=== PATIENT | male | born 1990 | race Two or more races ===

== ENCOUNTER 2024-03-30 22:22 | Inpatient (IN) | payer OTHER ==
[~2024-03-30] VITALS: Ht 177.8 cm; Wt 77.1 kg
[2024-03-30] MEDS ORDERED: LACO100T2 GT (22:58)
[2024-03-30] MEDS ORDERED: LEVE100S GT (22:58)
[2024-03-30] MEDS ORDERED: FAMO20TA8 GT (22:58)
[2024-03-30] MEDS ORDERED: HYDR-4077 GT (22:58)
[2024-03-30] MEDS ORDERED: AMLO-212 GT (22:58)
[2024-03-30] MEDS ORDERED: METO50TA16 GT (22:58)
[2024-03-30] MEDS ORDERED: AMIN30LI2 GT (22:58)
[2024-03-30] MEDS ORDERED: HEPA500034 SUBCUT (22:58)
[2024-03-30] MEDS ORDERED: LOSA25TA27 GT (22:58)
[2024-03-30 23:04] LABS: BASOPHILS # (AUTO) 0.1 K/UL (0.0-0.2); BASOPHILS % (AUTO) 0.5 % (0.0-2.0); EOSINOPHILS # (AUTO) 0.4 K/uL (0.0-0.7); EOSINOPHILS % (AUTO) 1.9 % (0.0-7.0); HEMATOCRIT 41.7 % (36.7-47.1); HEMOGLOBIN 13.2 g/dL (12.5-16.3); LYMPHOCYTES % (AUTO) 13.8 % (20.5-51.5); MEAN CORPUSCULAR HEMOGLOBIN 30.4 uug (23.8-33.4); MEAN CORPUSCULAR HGB CONC 32 g/dL (32.5-36.3); MEAN CORPUSCULAR VOLUME 96.1 fL (73.0-96.2); MONOCYTES # (AUTO) 0.7 K/uL (0.1-1.30); MONOCYTES % (AUTO) 3.2 % (0.0-11.0); NEUTROPHILS # (AUTO) 17.8 K/uL (1.8-8.9); NEUTROPHILS % (AUTO) 80.6 % (38.5-71.5); PLATELET COUNT (AUTO) 555 K/uL (152-348); RED BLOOD CELL COUNT(AUTO) 4.33 MIL/uL (4.06-5.63)
[2024-03-30 23:08] LABS: CALCIUM 9.4 mg/dL (8.5-10.1); CARBON DIOXIDE 26 mmol/L (21-32); CHLORIDE 120 mmol/L (98-107); CREATININE 1.1 mg/dL (0.6-1.3); GLUCOSE 132 mg/dL (74-106); POTASSIUM 4.8 mmol/L (3.5-5.1); UREA NITROGEN, BLOOD 52 mg/dL (7-18)
[2024-03-30 23:25] LABS: ALANINE AMINOTRANSFERASE 255 U/L (16-63); ALBUMIN 3.6 g/dL (3.4-5.0); ALKALINE PHOSPHATASE 379 U/L (50-136); ASPARTATE AMINOTRANSFERASE 50 U/L (15-37); BILIRUBIN,DIRECT 0.2 mg/dL (0.0-0.2); BILIRUBIN,TOTAL 0.5 mg/dL (0.2-1.0); NT-PRO BNP 45 pg/mL (0-125); TOTAL PROTEIN, SERUM 8.7 g/dL (6.4-8.2)
[2024-03-30] MEDS ORDERED: ACETAMINOPHEN 325 MG SUPP ONE (23:26)
[2024-03-30] MEDS ORDERED: MEROPENEM 1GM/NS 100ML IVPB **ER PYXIS ONLY IV ONE (23:30)
[2024-03-30] MEDS: MEROPENEM 1 G in IV NORMAL SALINE 100 ML IV ONE (23:37)
[2024-03-30] MEDS: IV NORMAL SALINE 1000 ML BAG IV ONE (23:37)
[2024-03-31 00:02] LABS: ABG HCO3 24.5 mmol/L (22.0-26.0); ABG PCO2 35.1 mmHg (35.0-48.0); ABG PH 7.461 (7.340-7.440); ABG PO2 147.2 mmHg (75.0-100.0); ABG SITE ALINE; ABG TOTAL HEMOGLOBIN 12.8 G/dL (14.0-18.0); COHb 0.3 % (0.0-3.9); MetHb 0.4 % (0.0-1.5); VT, ABG 500 mL
[2024-03-31] MEDS: IV D5W 1000ML 1,000 ML IV ONE (00:04)
[2024-03-31] MEDS ORDERED: REMEDY ESSENTIAL ZINC PASTE 113 GM TP PRN (02:45)
[2024-03-31] MEDS ORDERED: IV NS 1000 ML 1,000 ML IV PRN (02:45)
[2024-03-31] MEDS ORDERED: MAGNESIUM HYDROXIDE 30 ML LIQUID UDC PO PRN (02:45)
[2024-03-31] MEDS ORDERED: ONDANSETRON 4 MG/2 ML VIAL IV PRN (02:45)
[2024-03-31] MEDS: IV D5W 1000ML 1,000 ML IV SCH (05:10)
[2024-03-31] MEDS: ACETAMINOPHEN 325 MG TABLET PO PRN (05:18)
[2024-03-31 05:59] VITALS: BP 134/77; TEMP 100; O2SAT 98
[2024-03-31] MEDS ORDERED: MEROPENEM 1 G in IV NORMAL SALINE 100 ML IV SCH (06:00)
[2024-03-31 06:46] LABS: BASOPHILS # (AUTO) 0.1 K/UL (0.0-0.2); BASOPHILS % (AUTO) 0.4 % (0.0-2.0); EOSINOPHILS # (AUTO) 0.3 K/uL (0.0-0.7); EOSINOPHILS % (AUTO) 1.4 % (0.0-7.0); HEMOGLOBIN 11.8 g/dL (12.5-16.3); LYMPHOCYTES # (AUTO) 1.9 K/uL (0.8-4.8); LYMPHOCYTES % (AUTO) 8.7 % (20.5-51.5); MEAN CORPUSCULAR HEMOGLOBIN 31.6 uug (23.8-33.4); MEAN CORPUSCULAR HGB CONC 33 g/dL (32.5-36.3); MEAN CORPUSCULAR VOLUME 96.2 fL (73.0-96.2); MONOCYTES # (AUTO) 0.9 K/uL (0.1-1.30); MONOCYTES % (AUTO) 3.9 % (0.0-11.0); NEUTROPHILS # (AUTO) 18.9 K/uL (1.8-8.9); NEUTROPHILS % (AUTO) 85.6 % (38.5-71.5); PLATELET COUNT (AUTO) 441 K/uL (152-348); RED BLOOD CELL COUNT(AUTO) 3.75 MIL/uL (4.06-5.63); RED CELL DISTRIBUTION WIDTH 14.7 % (12.1-16.2); WHITE BLOOD COUNT (AUTO) 22.1 K/uL (3.6-10.2)
[2024-03-31 06:53] LABS: ALBUMIN 3.2 g/dL (3.4-5.0); BILIRUBIN,DIRECT 0.2 mg/dL (0.0-0.2); BILIRUBIN,TOTAL 0.6 mg/dL (0.2-1.0); CALCIUM 8.9 mg/dL (8.5-10.1); MAGNESIUM 2.9 mg/dL (1.8-2.4); PHOSPHOROUS 5.8 mg/dL (2.5-4.9); TOTAL PROTEIN, SERUM 7.9 g/dL (6.4-8.2)
[2024-03-31 07:07] LABS: THYROID STIMULATING HORMONE 3.357 mIU/mL (0.358-3.740)
[2024-03-31 07:12] LABS: DIFFERENTIAL COMMENT 1
[2024-03-31 08:00] VITALS: BP 130/96; TEMP 98.9; O2SAT 98
[2024-03-31] MEDS: IV NS 1000 ML 1,000 ML IV ONE (08:38)
[2024-03-31] MEDS: MEROPENEM 1 G in IV NORMAL SALINE 100 ML IV SCH (08:44)
[2024-03-31] MEDS: PANTOPRAZOLE SODIUM 40 MG VIAL IV SCH (08:45)
[2024-03-31] MEDS: ENOXAPARIN SODIUM 40 MG/0.4 ML DISP.SYRIN SQ SCH (08:49)
[2024-03-31 10:38] LABS: *BILIRUBIN,URIN NEGATIVE (NEGATIVE); *CLARITY,URINE CLOUDY (CLEAR); *COLOR,URINE YELLOW (YELLOW); *KETONES,URINE NEGATIVE (NEGATIVE); *PROTEIN,URINE 3+ (NEGATIVE); *UROBILINOGEN,URINE 0.2 E.U./dl (NORMAL); LEUKOCYTE ESTERASE ,URINE 3+ (NEGATIVE); NITRITE, URINE NEGATIVE (NEGATIVE); PH,URINE >=9.0 (5.0-8.0); UGLUCOSE NEGATIVE (NEGATIVE)
[2024-03-31] MEDS ORDERED: LORAZEPAM 2 MG/1 ML VIAL IV PRN (11:30)
[2024-03-31 12:43] LABS: *BLOOD, URINE TRACE (NEGATIVE)
[2024-03-31] MEDS ORDERED: JEVITY 1.2 1000 ML LIQUID GT PRN (13:15)
[2024-03-31 13:26] LABS: WBC,URINE 80-100 /HPF (0-3)
[2024-03-31 13:28] LABS: BACTERIA,URINE MODERATE /HPF (NONE SEEN); SQUAMOUS EPITHELIAL CELL,UR FEW /HPF (NONE SEEN)
[2024-03-31] MEDS: METOPROLOL TARTRATE 50 MG TABLET GT SCH (13:36)
[2024-03-31] MEDS: LACOSAMIDE 50 MG TABLET GT SCH (16:40)
[2024-03-31] MEDS: PROTEIN SUPPLEMENT (PROSTAT) 30 ML LIQUID GT SCH (16:40)
[2024-03-31] MEDS: levETIRAcetam 500 MG/5 ML LIQUID UDC GT SCH (16:40)
[2024-03-31] MEDS ORDERED: Medication Not On Formulary EA (Lacosamide (Vimpat) 100 MG) GT SCH (17:00)
[2024-03-31] MEDS ORDERED: Medication Not On Formulary EA (Amino Acids/Protein Hydrolys (Pro-Stat Liquid) 30 ML) GT SCH (17:00)
[2024-03-31 17:14] VITALS: BP 107/72; TEMP 98.2; O2SAT 93
[2024-03-31] MEDS: JEVITY 1.2 1000 ML LIQUID GT PRN (17:33)
[2024-03-31 19:45] VITALS: BP 109/66; TEMP 97.5; O2SAT 99
[2024-04-01] VITALS (7 sets, daily range): BP systolic 89–125; BP diastolic 50–69; TEMP 97.6–100.3; O2SAT 97–99
[2024-04-01 06:37] LABS: ABG BASE EXCESS -2.7 mmol/L (-2.0-2.0); ABG HCO3 20.8 mmol/L (22.0-26.0); ABG PCO2 31.7 mmHg (35.0-48.0); ABG PH 7.435 (7.340-7.440); ABG PO2 138.3 mmHg (75.0-100.0); ABG SITE RIGHT RADIAL; ABG TOTAL HEMOGLOBIN 10.4 G/dL (14.0-18.0); AaDO2 98.9 mmHg; COHb 0.2 % (0.0-3.9); MetHb 0.5 % (0.0-1.5); O2Hb 97.7 % (94.0-97.0); VT, ABG 500 mL
[2024-04-01 07:39] LABS: BASOPHILS # (AUTO) 0.1 K/UL (0.0-0.2); BASOPHILS % (AUTO) 0.7 % (0.0-2.0); EOSINOPHILS # (AUTO) 0.6 K/uL (0.0-0.7); EOSINOPHILS % (AUTO) 3.8 % (0.0-7.0); HEMATOCRIT 29.9 % (36.7-47.1); HEMOGLOBIN 9.8 g/dL (12.5-16.3); LYMPHOCYTES % (AUTO) 13.6 % (20.5-51.5); MEAN CORPUSCULAR HEMOGLOBIN 31.5 uug (23.8-33.4); MEAN CORPUSCULAR HGB CONC 33 g/dL (32.5-36.3); MEAN CORPUSCULAR VOLUME 96.2 fL (73.0-96.2); MONOCYTES # (AUTO) 0.7 K/uL (0.1-1.30); MONOCYTES % (AUTO) 4.9 % (0.0-11.0); NEUTROPHILS # (AUTO) 11.2 K/uL (1.8-8.9); PLATELET COUNT (AUTO) 413 K/uL (152-348); RED BLOOD CELL COUNT(AUTO) 3.11 MIL/uL (4.06-5.63); RED CELL DISTRIBUTION WIDTH 14.9 % (12.1-16.2); WHITE BLOOD COUNT (AUTO) 14.6 K/uL (3.6-10.2)
[2024-04-01 07:44] LABS: DIFFERENTIAL COMMENT 1
[2024-04-01 08:00] LABS: ALBUMIN 2.7 g/dL (3.4-5.0); BILIRUBIN,DIRECT 0.1 mg/dL (0.0-0.2); BILIRUBIN,TOTAL 0.3 mg/dL (0.2-1.0); CALCIUM 8.5 mg/dL (8.5-10.1); CREATININE 0.7 mg/dL (0.6-1.3); MAGNESIUM 2.8 mg/dL (1.8-2.4); PHOSPHOROUS 4.4 mg/dL (2.5-4.9); POTASSIUM 3.6 mmol/L (3.5-5.1); TOTAL PROTEIN, SERUM 6.8 g/dL (6.4-8.2)
[2024-04-01 08:09] LABS: C-REACTIVE PROTEIN 3.7 mg/dL (0.00-0.30)
[2024-04-02 00:31] VITALS: BP 121/67; TEMP 98.4; O2SAT 99
[2024-04-02 04:00] VITALS: BP 120/67; TEMP 98.6; O2SAT 100
[2024-04-02] MEDS: PANTOPRAZOLE ORAL SUSPENSION 40 MG SUSPDR.PKT GT SCH (05:11)
[2024-04-02 07:04] LABS: BASOPHILS # (AUTO) 0.1 K/UL (0.0-0.2); BASOPHILS % (AUTO) 0.7 % (0.0-2.0); EOSINOPHILS # (AUTO) 0.5 K/uL (0.0-0.7); EOSINOPHILS % (AUTO) 4.3 % (0.0-7.0); HEMATOCRIT 30.7 % (36.7-47.1); HEMOGLOBIN 10.1 g/dL (12.5-16.3); LYMPHOCYTES # (AUTO) 1.6 K/uL (0.8-4.8); MEAN CORPUSCULAR HEMOGLOBIN 31.7 uug (23.8-33.4); MEAN CORPUSCULAR HGB CONC 33 g/dL (32.5-36.3); MEAN CORPUSCULAR VOLUME 95.7 fL (73.0-96.2); MONOCYTES # (AUTO) 0.6 K/uL (0.1-1.30); MONOCYTES % (AUTO) 5.4 % (0.0-11.0); NEUTROPHILS # (AUTO) 8.1 K/uL (1.8-8.9); NEUTROPHILS % (AUTO) 74.6 % (38.5-71.5); PLATELET COUNT (AUTO) 417 K/uL (152-348); RED CELL DISTRIBUTION WIDTH 14.4 % (12.1-16.2); WHITE BLOOD COUNT (AUTO) 10.9 K/uL (3.6-10.2)
[2024-04-02 07:09] LABS: DIFFERENTIAL COMMENT 1
[2024-04-02 07:12] LABS: ALANINE AMINOTRANSFERASE 108 U/L (16-63); ALBUMIN 2.7 g/dL (3.4-5.0); ALKALINE PHOSPHATASE 240 U/L (50-136); ASPARTATE AMINOTRANSFERASE 23 U/L (15-37); BILIRUBIN,DIRECT 0.1 mg/dL (0.0-0.2); BILIRUBIN,TOTAL 0.3 mg/dL (0.2-1.0); CALCIUM 8.7 mg/dL (8.5-10.1); CARBON DIOXIDE 26 mmol/L (21-32); CHLORIDE 106 mmol/L (98-107); CREATININE 0.5 mg/dL (0.6-1.3); GLUCOSE 110 mg/dL (74-106); MAGNESIUM 2.4 mg/dL (1.8-2.4); PHOSPHOROUS 3.4 mg/dL (2.5-4.9); POTASSIUM 3.6 mmol/L (3.5-5.1); SODIUM SERUM 142 mmol/L (136-145); TOTAL PROTEIN, SERUM 6.9 g/dL (6.4-8.2); UREA NITROGEN, BLOOD 24 mg/dL (7-18)
[2024-04-02 07:49] VITALS: BP 137/65; TEMP 98.6; O2SAT 91
[2024-04-02 11:09] VITALS: BP 162/88; TEMP 98.2; O2SAT 95
[2024-04-02 18:03] VITALS: BP 162/81; TEMP 98.8; O2SAT 98
[2024-04-02 19:56] VITALS: BP 143/73; TEMP 98.3; O2SAT 98
[2024-04-03 00:02] VITALS: BP 156/87; TEMP 98.4; O2SAT 100
[2024-04-03 04:00] VITALS: BP 131/85; TEMP 98.6; O2SAT 98
[2024-04-03 06:38] LABS: BASOPHILS # (AUTO) 0.1 K/UL (0.0-0.2); BASOPHILS % (AUTO) 0.8 % (0.0-2.0); EOSINOPHILS # (AUTO) 0.4 K/uL (0.0-0.7); HEMATOCRIT 30.3 % (36.7-47.1); HEMOGLOBIN 10.3 g/dL (12.5-16.3); LYMPHOCYTES # (AUTO) 1.5 K/uL (0.8-4.8); LYMPHOCYTES % (AUTO) 14.4 % (20.5-51.5); MEAN CORPUSCULAR HEMOGLOBIN 31.8 uug (23.8-33.4); MEAN CORPUSCULAR HGB CONC 34 g/dL (32.5-36.3); MEAN CORPUSCULAR VOLUME 93.6 fL (73.0-96.2); MONOCYTES # (AUTO) 0.8 K/uL (0.1-1.30); MONOCYTES % (AUTO) 7.3 % (0.0-11.0); NEUTROPHILS # (AUTO) 7.7 K/uL (1.8-8.9); NEUTROPHILS % (AUTO) 73.5 % (38.5-71.5); PLATELET COUNT (AUTO) 458 K/uL (152-348); RED BLOOD CELL COUNT(AUTO) 3.24 MIL/uL (4.06-5.63); RED CELL DISTRIBUTION WIDTH 14.2 % (12.1-16.2); WHITE BLOOD COUNT (AUTO) 10.5 K/uL (3.6-10.2)
[2024-04-03 06:52] LABS: DIFFERENTIAL COMMENT 1
[2024-04-03 06:57] LABS: CALCIUM 8.8 mg/dL (8.5-10.1); CARBON DIOXIDE 27 mmol/L (21-32); CHLORIDE 106 mmol/L (98-107); CREATININE 0.4 mg/dL (0.6-1.3); GLUCOSE 110 mg/dL (74-106); MAGNESIUM 2.2 mg/dL (1.8-2.4); PHOSPHOROUS 3.4 mg/dL (2.5-4.9); POTASSIUM 3.2 mmol/L (3.5-5.1); SODIUM SERUM 143 mmol/L (136-145); UREA NITROGEN, BLOOD 14 mg/dL (7-18)
[2024-04-03 08:14] VITALS: BP 161/101; TEMP 98.3; O2SAT 99
[2024-04-03 12:35] VITALS: BP 146/77; TEMP 98.5; O2SAT 98
[2024-04-03] MEDS: POTASSIUM CHLORIDE 20 MEQ POWDER PACKET GT ONE (16:06)
[2024-04-03 16:58] VITALS: BP 134/78; TEMP 98.5; O2SAT 100
[2024-04-03 20:36] VITALS: BP 152/92; TEMP 98.9; O2SAT 99
[2024-04-04 00:33] VITALS: BP 145/86; TEMP 98.8; O2SAT 99
[2024-04-04 04:00] VITALS: BP 170/93; TEMP 98.6; O2SAT 100
[2024-04-04 05:40] VITALS: BP 140/80; TEMP 98.7; O2SAT 100
[2024-04-04 08:40] VITALS: BP 140/98; TEMP 98.2; O2SAT 100
[2024-04-04 12:00] VITALS: BP 157/73; TEMP 98.2; O2SAT 100
[2024-04-04 14:59] LABS: BASOPHILS # (AUTO) 0.1 K/UL (0.0-0.2); BASOPHILS % (AUTO) 0.7 % (0.0-2.0); EOSINOPHILS # (AUTO) 0.4 K/uL (0.0-0.7); EOSINOPHILS % (AUTO) 3.9 % (0.0-7.0); HEMATOCRIT 31.7 % (36.7-47.1); HEMOGLOBIN 10.5 g/dL (12.5-16.3); LYMPHOCYTES # (AUTO) 1.6 K/uL (0.8-4.8); MEAN CORPUSCULAR HGB CONC 33 g/dL (32.5-36.3); MEAN CORPUSCULAR VOLUME 93.8 fL (73.0-96.2); MONOCYTES # (AUTO) 0.5 K/uL (0.1-1.30); MONOCYTES % (AUTO) 5.3 % (0.0-11.0); NEUTROPHILS # (AUTO) 7.6 K/uL (1.8-8.9); NEUTROPHILS % (AUTO) 74.1 % (38.5-71.5); PLATELET COUNT (AUTO) 520 K/uL (152-348); RED BLOOD CELL COUNT(AUTO) 3.38 MIL/uL (4.06-5.63); RED CELL DISTRIBUTION WIDTH 14.4 % (12.1-16.2); WHITE BLOOD COUNT (AUTO) 10.2 K/uL (3.6-10.2)
[2024-04-04 15:07] LABS: DIFFERENTIAL COMMENT 1
[2024-04-04 15:11] LABS: ALANINE AMINOTRANSFERASE 122 U/L (16-63); ALBUMIN 2.6 g/dL (3.4-5.0); ALKALINE PHOSPHATASE 233 U/L (50-136); ASPARTATE AMINOTRANSFERASE 29 U/L (15-37); BILIRUBIN,TOTAL 0.3 mg/dL (0.2-1.0); CALCIUM 9.1 mg/dL (8.5-10.1); CARBON DIOXIDE 26 mmol/L (21-32); CHLORIDE 104 mmol/L (98-107); CREATININE 0.3 mg/dL (0.6-1.3); GLUCOSE 105 mg/dL (74-106); POTASSIUM 4.2 mmol/L (3.5-5.1); SODIUM SERUM 140 mmol/L (136-145); TOTAL PROTEIN, SERUM 6.6 g/dL (6.4-8.2); UREA NITROGEN, BLOOD 12 mg/dL (7-18)
[2024-04-04 20:23] VITALS: BP 123/79; TEMP 99.4; O2SAT 100
[2024-04-04] MEDS: CEFEPIME HCL 1 G in IV DEXTROSE 5% 50 ML IV SCH (21:13)
[2024-04-05 00:05] VITALS: BP 121/83; TEMP 98.9; O2SAT 100
[2024-04-05 08:00] VITALS: BP 142/91; TEMP 97.2; O2SAT 99
[2024-04-05 10:09] LABS: BASOPHILS # (AUTO) 0.1 K/UL (0.0-0.2); BASOPHILS % (AUTO) 0.7 % (0.0-2.0); EOSINOPHILS # (AUTO) 0.4 K/uL (0.0-0.7); EOSINOPHILS % (AUTO) 3.9 % (0.0-7.0); HEMATOCRIT 35.1 % (36.7-47.1); HEMOGLOBIN 11.8 g/dL (12.5-16.3); LYMPHOCYTES # (AUTO) 1.8 K/uL (0.8-4.8); LYMPHOCYTES % (AUTO) 17.3 % (20.5-51.5); MEAN CORPUSCULAR HEMOGLOBIN 31.5 uug (23.8-33.4); MEAN CORPUSCULAR HGB CONC 34 g/dL (32.5-36.3); MEAN CORPUSCULAR VOLUME 93.3 fL (73.0-96.2); MONOCYTES # (AUTO) 0.7 K/uL (0.1-1.30); MONOCYTES % (AUTO) 6.9 % (0.0-11.0); NEUTROPHILS # (AUTO) 7.5 K/uL (1.8-8.9); NEUTROPHILS % (AUTO) 71.2 % (38.5-71.5); PLATELET COUNT (AUTO) 592 K/uL (152-348); RED BLOOD CELL COUNT(AUTO) 3.76 MIL/uL (4.06-5.63); RED CELL DISTRIBUTION WIDTH 14.7 % (12.1-16.2); WHITE BLOOD COUNT (AUTO) 10.5 K/uL (3.6-10.2)
[2024-04-05 11:32] LABS: CALCIUM 9.2 mg/dL (8.5-10.1); CARBON DIOXIDE 27 mmol/L (21-32); CHLORIDE 102 mmol/L (98-107); CREATININE 0.4 mg/dL (0.6-1.3); GLUCOSE 104 mg/dL (74-106); PHOSPHOROUS 4.1 mg/dL (2.5-4.9); POTASSIUM 3.6 mmol/L (3.5-5.1); SODIUM SERUM 138 mmol/L (136-145); UREA NITROGEN, BLOOD 12 mg/dL (7-18)
[2024-04-05 12:00] VITALS: BP 140/88; TEMP 98; O2SAT 100
[2024-04-05] MEDS ORDERED: CEFE1FRO IV (14:06)
[2024-04-05] MEDS ORDERED: LACT-209 GT (14:06)
[2024-04-05 16:00] VITALS: BP 147/58; TEMP 98.7; O2SAT 100
== END 2024-04-05 19:10 | DRG 720 ==
LOC: ER 22:24 → TELE-TD3 03-31 02:02 → TELE3 03-31 17:58
PROVIDERS: ADMIT Nurse Practitioner Family; ATTEND Nurse Practitioner Family
PROC: 5A1955Z Respiratory Ventilation, Greater than 96 Consecutive Hours (ICD-10-PCS; principal; 2024-03-31)
PROC: 05H933Z Insertion of Infusion Device into Right Brachial Vein, Percutaneous Approach (ICD-10-PCS; 2024-04-04)
DX: A41.50 Gram-negative sepsis, unspecified (principal); J96.21 Acute and chronic respiratory failure with hypoxia; G93.1 Anoxic brain damage, not elsewhere classified; E87.20 Acidosis, unspecified; R56.9 Unspecified convulsions; E87.0 Hyperosmolality and hypernatremia; E86.0 Dehydration; T65.91XS Toxic effect of unspecified substance, accidental (unintentional), sequela; N39.0 Urinary tract infection, site not specified; R65.20 Severe sepsis without septic shock; Z93.0 Tracheostomy status; R13.10 Dysphagia, unspecified; Z99.11 Dependence on respirator [ventilator] status; Z93.1 Gastrostomy status; K21.9 Gastro-esophageal reflux disease without esophagitis; R74.8 Abnormal levels of other serum enzymes; N17.9 Acute kidney failure, unspecified; I10 Essential (primary) hypertension; D64.9 Anemia, unspecified
CPT/HCPCS: 36415; 36600; 71045; 76705; 82803; 83605; 83690; 83735; 84100; 84443; 84484; 85025; 86140; 87040; 93005; 94002; 94003; 94760; 99082-TC; A4606; A4663; A6213; G0378; J0692; J1650; J2185; J2470; J7040; J7060; J7070